=== PATIENT | male | born 1975 | race American Indian/Alaskan Native ===

== ENCOUNTER 2020-10-10 22:58 | Emergency (ER) | payer OTHER ==
[~2020-10-10 22:58] MED LIST: ATROPINE 0.1% (1 MG/10 ML) CARDIAC SYRINGE ONE; CALCIUM CHLORIDE 1,000 MG/10 ML SYRINGE IV ONE; DOPamine/D5W 800 MG/250 ML DRIP IV ONE; EPINEPHrine 1 MG/10 ML SYRINGE ONE; SODIUM BICARB 8.4% 50 MEQ/50 ML SYRINGE IV ONE
--- NOTE | 2020-10-11 00:49 | Event Note ---
ED Screening Note Date of service: 10/11/20 Time: 00:48 ED Screening Note: 45-year-old -[place] male presents to the emergency room complaining of chest palpitations and shortness of breath. Patient reports he has been drinking alcohol. Denies any nausea no vomiting no chest pain reports that shortness of breath has gotten better since he is relaxed. States he still feels a little bit of heart racing. Currently has a past medical history of hypertension diabetes on Norvasc and Metformin. This initial assessment/diagnostic orders/clinical plan/treatment(s) is/are subject to change based on patients health status, clinical progression and re- assessment by fellow clinical providers in the ED. Further treatment and workup at subsequent clinical providers discretion. Patient/guardian urged not to elope from the ED as their condition may be serious if not clinically assessed and managed. Initial orders include:
[2020-10-11 01:27] LABS: Basophils % (Auto) 0.3 % (0.0-1.8); Eosinophils # (Auto) 0.1 K/mm3 (0.0-0.4); Eosinophils % (Auto) 1.7 % (0.0-4.3); Hematocrit 44.2 % (35.5-45.6); Hemoglobin 14.3 gm/dl (11.8-15.2); Lymphocytes # (Auto) 2.8 K/mm3 (1.2-5.4); Lymphocytes % (Auto) 44.2 % (13.4-35.0); Mean Corpuscular HGB Conc 32 % (32-34); Mean Corpuscular Volume 80 fl (84-94); Monocytes # (Auto) 0.6 K/mm3 (0.0-0.8); Monocytes % (Auto) 9.4 % (0.0-7.3); Platelet Count 218 K/mm3 (140-440); Red Blood Count 5.54 M/mm3 (3.65-5.03); Red Cell Distribution Width 15.9 % (13.2-15.2)
[2020-10-11 01:52] LABS: Alanine Aminotransferase 87 units/L (7-56); Albumin 4.2 g/dL (3.9-5); BUN/Creatinine Ratio 16; Blood Urea Nitrogen 16 mg/dL (9-20); Calcium 8.8 mg/dL (8.4-10.2); Hemolysis Index 15
[2020-10-11] MEDS ORDERED: hydrALAZINE 20 MG/1 ML INJ IV ONE (09:34)
[2020-10-11] MEDS ORDERED: SODIUM CHLORIDE 0.9% 1000 ML 1,000 ML IV ONE (09:34)
--- NOTE | 2020-10-11 10:24 | Emergency Department Report ---
ED General Adult HPI - General Chief complaint: Arrhythmia/Palpitations Stated complaint: ETOH Time Seen by Provider: 10/11/20 09:05 Source: patient Mode of arrival: Ambulatory Limitations: No Limitations - History of Present Illness Initial comments: The patient presents to the emergency department with a chief complaint of heart palpitations or shortness of breath that started last night. Patient states he has mild chest pain is located on the left side of his chest without radiation. Patient states he has a history of diabetes and hypertension. -: Sudden Severity scale (0 -10): 0 Consistency: constant Improves with: none Worsens with: none Associated Symptoms: denies other symptoms Treatments Prior to Arrival: none - Related Data Allergies Allergy/AdvReac Type Severity Reaction Status Date / Time FANTA Inhibitors Allergy Unknown Verified 10/10/20 23:09 ED Review of Systems ROS: Stated complaint: ETOH Other details as noted in HPI Constitutional: denies: chills, fever Eyes: denies: eye pain, eye discharge, vision change ENT: denies: ear pain, throat pain Respiratory: denies: cough, shortness of breath, wheezing Cardiovascular: chest pain, palpitations Endocrine: no symptoms reported Gastrointestinal: denies: abdominal pain, nausea, diarrhea Genitourinary: denies: urgency, dysuria Musculoskeletal: denies: back pain, joint swelling, arthralgia Skin: denies: rash, lesions Neurological: denies: headache, weakness, paresthesias Psychiatric: denies: anxiety, depression Hematological/Lymphatic: denies: easy bleeding, easy bruising ED Past Medical Hx - Past Medical History Previous Medical History?: Yes Hx Hypertension: Yes Hx Diabetes: Yes - Surgical History Past Surgical History?: No - Social History Smoking Status: Current Every Day Smoker Substance Use Type: Alcohol ED Physical Exam - General Limitations: No Limitations General appearance: alert, in no apparent distress - Head Head exam: Present: atraumatic, normocephalic - Eye Eye exam: Present: normal appearance, PERRL, EOMI - ENT ENT exam: Present: mucous membranes dry - Neck Neck exam: Present: normal inspection - Respiratory Respiratory exam: Present: normal lung sounds bilaterally. Absent: respiratory distress - Cardiovascular Cardiovascular Exam: Present: normal rhythm, tachycardia. Absent: systolic murmur, diastolic murmur, rubs, gallop - GI/Abdominal GI/Abdominal exam: Present: soft, normal bowel sounds. Absent: distended, tenderness - Rectal Rectal exam: Present: deferred - Extremities Exam Extremities exam: Present: normal inspection - Back Exam Back exam: Present: normal inspection - Neurological Exam Neurological exam: Present: alert, oriented X3, CN II-XII intact. Absent: motor sensory deficit - Psychiatric Psychiatric exam: Present: normal affect, normal mood - Skin Skin exam: Present: warm, dry, intact, normal color. Absent: rash ED Course Vital Signs 10/10/20 10/11/20 10/11/20 23:10 07:36 09:07 Temperature 99.0 F 97.9 F Pulse Rate 112 H 99 H Respiratory 18 20 14 Rate Blood Pressure 169/92 Blood Pressure 217/108 [Right] O2 Sat by Pulse 96 97 98 Oximetry 10/11/20 10/11/20 10/11/20 09:30 10:00 10:15 Temperature Pulse Rate 95 H 87 89 Respiratory 15 12 Rate Blood Pressure 190/98 175/89 175/89 Blood Pressure [Right] O2 Sat by Pulse 95 95 Oximetry 10/11/20 11:00 Temperature Pulse Rate 91 H Respiratory 16 Rate Blood Pressure 169/95 Blood Pressure [Right] O2 Sat by Pulse 99 Oximetry ED Medical Decision Making - Lab Data Result diagrams: 10/11/20 00:56 10/11/20 00:56 - EKG Data -: EKG Interpreted by Fl EKG shows normal: sinus rhythm Rate: tachycardia - Radiology Data Radiology results: report reviewed - Medical Decision Making Discussed results with patient CTA of the chest was done due to the patient with shortness of breath and tachycardia Critical care attestation.: If time is entered above; I have spent that time in minutes in the direct care of this critically ill patient, excluding procedure time. ED Disposition Clinical Impression: Dyspnea, Palpitations Disposition: -01 TO HOME OR SELFCARE Is pt being admited?: No Does the pt Need Aspirin: No Condition: Stable Instructions: Shortness of Breath, Adult, [id number], Palpitations Additional Instructions: Return if worse Referrals: PRIMARY CARE, [Primary Care Provider] - 3-5 Days NANO URENA MD [Staff Physician] - 3-5 Days Time of Disposition: 13:21
--- NOTE | 2020-10-11 12:48 | Cat Scan Report ---
CTA CHEST WITH CONTRAST INDICATION / CLINICAL INFORMATION: MAIN. TECHNIQUE: Axial CT images were obtained through the chest after injection of IV contrast. 3 plane MIP and/or 3D reconstructions were produced. All CT scans at this location are performed using CT dose reduction f or ALARA by means of automated exposure control. COMPARISON: None available. FINDINGS: PULMONARY ARTERIES: No large central or segmental pulmonary embolus. Distal arterial structures bilat erally are poorly visualized secondary to timing of bolus and demonstrate turbulent filling artifact. THORACIC AORTA: No significant abnormality. HEART: No significant abnormality. CORONARY ARTERIES: No significant calcification. MEDIASTINUM / FERDINAND: No significant abnormality. PLEURA: No pleural effusion. No pneumothorax. LUNGS: No acute air space or interstitial disease. ADDITIONAL FINDINGS: None. UPPER ABDOMEN: No acute findings. Diffuse hepatic steatosis. SKELETAL STRUCTURES: No significant osseous abnormality. IMPRESSION: 1. No CT evidence for for large central pulmonary embolism. Timing of contrast bolus limits evaluatio n of the distal arteries with turbulent filling artifact. 2. Diffuse hepatic steatosis. Signer Name: Walter De León MD Signed: 10/11/2020 12:40 PM Workstation Name: [id number]
[2020-10-11 20:14] VITALS: BP 195/94
--- NOTE | 2020-10-12 12:59 | Electrocardiograph Report ---
[facility] Test Date: 2020-10-10 Test Time: 23:15:15 Pat Name: CL GARCIA Department: Room: Gender: M Court Magistrate: TIM : 1975 Requested By: ED DOC Order Number: [id number] Reading MD: Ang Clark Measurements Intervals [place] Rate: 104 P: 73 VA: 166 QRS: 46 QRSD: 96 T: 244 QT: 344 QTc: 453 Interpretive Statements Sinus tachycardia Probable left atrial enlargement Probable anteroseptal infarct, old No previous ECG available for comparison Electronically Signed On 10-12-2020 12:59:28 EDT by Ang Clark
== END 2020-10-11 15:15 | disposition home or self-care (01) ==
LOC: ED 22:58
DX: R00.2 Palpitations (principal); R06.00 Dyspnea, unspecified; I10 Essential (primary) hypertension; E11.9 Type 2 diabetes mellitus without complications; F17.200 Nicotine dependence, unspecified, uncomplicated; Z79.899 Other long term (current) drug therapy; Z88.8 Allergy status to other drugs, medicaments and biological substances
CPT/HCPCS: 36415; 71275; 80053; 83735; 84484; 85025; 85379; 93005; 96361; 96374; 99284; J0171; J0360; J0461; J1265; J7030; Q9967; 80320; G0480